=== PATIENT | male | born 1980 | race Hispanic/Latino ===

== ENCOUNTER 2016-12-14 20:45 | Emergency (ER) | payer OTHER ==
[~2016-12-14] VITALS: Ht 167.6 cm; Wt 97.7 kg
[~2016-12-14 20:45] MED LIST: CEPH-512 PO; DIPH25CA6 PO; LORA10CA PO; PRE20 PO
[2016-12-14 20:51] VITALS: BP 141/97; PULSE 124; RESP 18; O2SAT 95
[2016-12-14 21:21] LABS: BASOPHILS % (AUTO) 0.1 % (0-3); EOSINOPHILS % (AUTO) 0.2 % (0-5); MONOCYTES % (AUTO) 2.9 % (4-12); Mean Corpuscular Hemoglobin 27.4 pg (27.0-35.0); Mean Corpuscular Volume 79.5 fL (81-100); NEUTROPHILS % (AUTO) 92.9 % (40-74); Platelet Count 268 bil/L (150-400)
--- NOTE | 2016-12-14 22:40 | ED.REPORT ---
HPI-Abd Pain F Under 40 Date of Service December 14, 2016 ED Provider: Hemal Lou MD The patient is a 36 year old male with a history of asthma, irregular heartbeat , and chronic back pain who presents to the ED with abdominal pain onset this morning, after drinking a canned coffee and a few bites of salad. Associated symptoms include diarrhea, nausea, and vomiting. The patient denies hematochezia , hematemesis, or other symptoms. Nursing Notes Stated Complaint: SEVERE STOMACH PAIN Chief Complaint: Male Abdominal Pain Nursing Notes Reviewed: Yes Allergies: Coded Allergies: Contrast Media (Verified Allergy, Unknown, 03/03/16) cyclobenzaprine (Verified Allergy, Unknown, 03/03/16) onion (Verified Adverse Reaction, Intermediate, HIVES, 03/03/16) Scheduled Cephalexin (Keflex) 500 Mg Capsule 500 MG PO QID Loratadine (Claritin) 10 Mg Capsule 10 MG PO DAILY Prednisone (PredniSONE) 20 Mg Tablet 20 MG PO TID Scheduled PRN diphenhydrAMINE HCl (Benadryl) 25 Mg Capsule 25 MG PO Q4 PRN PRN For Itching General Time Seen by MD: 22:39 Chief Complaint Abdominal pain Hx Obtained From: Patient Arrived By: Walk-in Sudden in Onset?: No Onset Occurred: 9 - 12 hours ago Symptom Duration: Since onset Location: : Diffuse (Abdomen) Quality: Painful Severity: Current: Moderate Severity: Maximum: Moderate Pertinent Negative: Relieved by nothing Recent Healthcare: No recent doctor visit Past Medical History Past Medical History Notes: Patient was previously seen for chronic back pain by physicial therapy, which terminated on 01/14/2015. Past Medical History Irregular heartbeat Reports: Asthma Past Surgical History Left carpal tunnel release on February 24, 2016 Smoking History Former Smoker Social History Alcohol Use: "Social" Other Social History: Good social support, Local resident Ambulatory Status Independent Review of Systems Constitutional: Denies: Fever Respiratory: Denies: Non-productive cough, Shortness of breath GI: Reports: Abdominal pain, Diarrhea, Nausea, Vomiting, Denies: Hematemesis, Hematochezia Complete sys rev & neg: except as marked. Physical Exam Initial Vital Signs Vital Signs (First) Date Time Temp Pulse Resp B/P Pulse Ox O2 Delivery O2 Flow Rate FiO2 12/14/16 20:51 37.2 124 18 141/97 95 Room Air Initial VS: Reviewed, Vital signs abnormal Head / Eyes: Atraumatic, Normocephalic Skin: Warm, Dry, No cyanosis Neurologic: Alert, Oriented, Nonfocal Psychiatric: Mood/affect normal, Behavior normal, Normal thought content General/Constitutional: Awake, Alert Distress / Hydration: Positive: Dehydration mild Smells ketotic Respiratory / Chest: Breath sounds NL, Breath sounds = bilat, No respiratory distress Cardiovascular: Heart rate NL, Regular rhythm, Heart sounds NL Abdomen: Atraumatic Tenderness/Guarding/Rebound: Positive: Tender diffuse Bowel Sounds / Distention: Positive: Distention moderate ENT: Airway patent Mouth: Positive: Mucous membranes dry Interpretation & Diagnostics URINE DRUG SCREEN: Negative URINE DIPSTICK: Bedside Urine Specific [place] * 1.010 Bedside Urine pH * 6 Bedside Urine Leukocyte Esterase * Negative Bedside Urine Nitrite * Negative Bedside Urine Protein * Trace Bedside Urine Glucose * Normal Bedside Urine Ketones * ++ Moderate Bedside Urine Urobilinogen * Normal Bedside Urine Bilirubin * Negative Bedside Urine Occult Blood * Trace Urine to Lab * Yes Lab Results Interpretation Result Diagram: 12/14/16210912/14/162109 Test 12/14/16 21:10 12/15/16 00:45 White Blood Count 14.2th/mm3 (3.8-10.1) Red Blood Count 6.89mil/mm3 (4.40-5.80) Hemoglobin 18.9g/dL (13.8-17.2) Hematocrit 54.8% (41.0-50.0) Mean Corpuscular Volume 79.5fL (81-100) Mean Corpuscular Hemoglobin 27.4pg (27.0-35.0) Mean Corpuscular Hemoglobin Concent 34.5% (32.0-37.0) Red Cell Distribution Width 14.3% (12.3-15.4) Platelet Count 268bil/L (150-400) Neutrophils (%) (Auto) 92.9% (40-74) Lymphocytes (%) (Auto) 3.4% (14-46) Monocytes (%) (Auto) 2.9% (4-12) Eosinophils (%) (Auto) 0.2% (0-5) Basophils (%) (Auto) 0.1% (0-3) Sodium Level 136mEq/L (134-144) Potassium Level 4.1mEq/L (3.5-5.2) Chloride Level 100mEq/L (97-108) Carbon Dioxide Level 20mmol/L (18-29) Blood Urea Nitrogen 20mg/dL (6-20) Creatinine 0.95mg/dL (0.76-1.27) Estimat Glomerular Filtration Rate 95mL/min (>59) Glucose Level 141mg/dL (60-99) Calcium Level 9.4mg/dL (8.5-10.1) Magnesium Level 2.0mg/dL (1.6-2.6) Total Bilirubin 0.7mg/dL (0.0-1.2) Aspartate Amino Transf (AST/SGOT) 44U/L (0-50) Alanine Aminotransferase (ALT/SGPT) 63U/L (0-44) Alkaline Phosphatase 40U/L (25-150) Total Protein 8.0g/dL (6.4-8.4) Albumin 4.5g/dL (3.4-5.0) Lipase 42U/L (13-60) Hold B[place]soe Top Tube Received (Received) Hold Urine Received (Received) Lab Results Interpretation: Elevated white blood count, hemoconcentration X-Ray Abdominal Interpretation ACUTE ABDOMINAL SERIES, 3 VIEW: Abundant stool present A couple of air-fluid levels One J-loop Interpretation / Wet Read by: Wet read ED physician CT Abd / Pelvis Interpretation CONCLUSION: No acute intra-abdominal abnormality. Hepatomegaly with hepatic steatosis. Diverticulosis with no evidence of diverticulitis. Report transmitted to the ED by radiologist Param Murcia M.D. at 12/15/2016 - 12:17:45 AM PDT Study type: Abdominal CT no contrast Interpretation / Wet Read by: Interpret - Radiologist Re-Eval/Medical Decision Med Decision/Clinical Course 36-year-old male with vomiting and abdominal pain. He has some distention so three-view abdomen was done which showed just a few air-fluid levels. He had persistent pain and vomiting so CT scan was done which was negative for any serious or surgical illness. He is discharged home in improved condition. Source of Hx: Old records Re-Evaluation/Progress #1: Time of Eval: 23:41 Patient Status: Condition improved Re-Evaluation/Progress Note: Discussed with patient x-ray results and plan for CT Re-Evaluation/Progress #2: Time of Eval: 01:11 Patient Status: Condition improved Re-Evaluation/Progress Note: Discussed with patient x-ray, CT, and lab results, diagnosis, and plan for discharge. Follow-up and return to the ER instructions given. Patient agrees with plan for care and all questions were addressed. Counseled Regarding: Diagnosis, Lab results, Need for follow-up, When/why to return to ED Discharge & Departure Primary Impression: Viral gastroenteritis Disposition: Home Discharge Condition All VS Reviewed: Yes Condition: Improved Patient Instructions: Acute Abdominal Pain (ED), Gastroenteritis (ED) Additional Instructions: Your white blood count is a little elevated, indicating that there is an infection. Other labs and the CT scan are all normal. I suspect that this is a viral gastroenteritis. This is not serious and not a surgical problem. Small amounts of clear liquids frequently. Follow-up with your regular doctor in 1-2 days if your symptoms persist. Return to the emergency room if you get worse. Recommend no work for 2 days. Referrals: Lester Peña MD (PCP) Kal Attestation Portions of this note were transcribed by Caitlyn Givens. I, Dr. Lou, personally performed the history, physical exam, and medical decision-making; I reviewed and confirmed the accuracy of the information in the transcribed note. Signed by: Kal Herrera, 12/15/2016, 01:40 copies to: Lester Peña MD, Howard L MD December 14, 2016 22:40 CAITLYN GIVENS December 14, 2016 22:49
[2016-12-14] MEDS ORDERED: 0.9% Sodium Chloride 1,000 ML IV ONE (22:46)
[2016-12-14] MEDS ORDERED: Ondansetron 2 mg/mL 2 mL Inj IVPUSH PRN (22:50)
[2016-12-14] MEDS ORDERED: HYDROmorphone 0.5 mg/0.5 mL iSecure Syringe IVPUSH PRN (22:50)
[2016-12-15 01:38] VITALS: BP 136/78; PULSE 78; RESP 18; O2SAT 98
--- NOTE | 2016-12-15 08:17 | DRSVH ---
PROCEDURE: CT ABDOMEN AND PELVIS WITHOUT CONTRAST ([id number]) INDICATIONS: abd pain and distention, contrast allergy TECHNIQUE: Noncontrast 5 mm thick sections acquired from the diaphragms to the symphysis. 5 mm coronal and sagi ttal reformats were then performed. For radiation dose reduction, the following was used: automated exposure control, adjustment of mA and/or kV according to patient size. COMPARISON: None. FINDINGS: Image quality: Excellent. ABDOMEN: Lung bases: Lung bases are clear. Heart size is normal. Solid organs: Liver and spleen are normal in size, but the liver is diffusely fatty infiltrated. Ga llbladder appears normal. Pancreas is normal in contours. No adrenal nodules. Kidneys are normal i n size, without hydronephrosis or nephrolithiasis. Peritoneum and bowel: Unenhanced bowel loops demonstrate normal wall thickness and caliber. No free fluid or air. Nodes and vessels: No retroperitoneal or mesenteric adenopathy by size criteria. Aorta and inferior vena cava are normal in caliber. Miscellaneous: No ventral hernias. PELVIS: Genitourinary: Bladder wall thickness is normal. Miscellaneous: No inguinal hernias or adenopathy. Bones: No suspicious bony lesions. No vertebral body compression fractures. IMPRESSION: Prominent fatty infiltration throughout the liver. No source of current acute pain found . Dictated by: Hernandez Gandara M.D. on 12/15/2016 at 8:15 Approved by: Hernandez Gandara M.D. on 12/15/2016 at 8:16
--- NOTE | 2016-12-15 08:43 | DRSVH ---
PROCEDURE: X-RAY ACUTE ABDOMINAL SERIES ([id number]) INDICATIONS: abd pain, distention, vomiting TECHNIQUE: One view chest and two views of the abdomen were acquired. COMPARISON: [facility], , ABD ACUTE SERIES, 03/30/2011, 15:14. FINDINGS: Surgical changes and devices: None. Chest: Lungs are clear. Heart size is normal. No pleural effusions. No pneumoperitoneum. Abdomen: Bowel gas pattern is normal. There is mild stool No suspicious calcifications. Visualized solid organ contours appear normal. Bones: No suspicious bony lesions. Lateral curvature of the spine IMPRESSION: No acute disease. No evidence of bowel obstruction Dictated by: Jay Macias M.D. on 12/15/2016 at 8:39 Approved by: Jay Macias M.D. on 12/15/2016 at 8:42
== END 2016-12-15 01:49 | disposition home or self-care (01) ==
LOC: SED 20:45
DX: A08.4 Viral intestinal infection, unspecified (principal); J45.909 Unspecified asthma, uncomplicated; Z87.891 Personal history of nicotine dependence; Z88.8 Allergy status to other drugs, medicaments and biological substances; Z91.02 Food additives allergy status; Z91.041 Radiographic dye allergy status
CPT/HCPCS: 36415; 74022; 74176; 80053; 83690; 83735; 85025; 96361; 96374; 96375; 99285; J1170; J2405; J7030